=== PATIENT | female | born 2000 | race American Indian/Alaskan Native ===

== ENCOUNTER 2022-06-01 21:35 | Emergency (ER) | payer MEDICAID ==
[~2022-06-01] VITALS: Ht 170.2 cm; Wt 115.6 kg
[~2022-06-01 21:35] MED LIST: LACT10SO88 PO; LORA10TA61 PO; MUPI1OIN8 BOTHNARES; ONDA4TAB12 PO; PANT40TA54 PO; [UNRECOGNIZED DRUG - CODE] PO
[2022-06-01] MEDS ORDERED: TETanus/Pertussis (Acell)/Diphther VAC/PF (Tdap-Adult) 0.5ml syringe IMVAC ONE (22:20)
[2022-06-01] MEDS ORDERED: bacitracin 15gm ointment TP ONE (22:20)
[2022-06-01] MEDS ORDERED: LIDOcaine 1% W/epiNEPHrine 1:200,000 10ml vial IJ ONE (22:20)
[2022-06-01] MEDS ORDERED: LIDOCAINE 2%/EPI 1:100,000 inj. Multi-dose 20 ML VIAL IJ ONE (22:35)
[2022-06-01 23:43] VITALS: BP 136/68
== END 2022-06-01 23:56 | disposition home or self-care (01) ==
LOC: ER 21:36
DX: S91.311A Laceration without foreign body, right foot, initial encounter (principal); K21.9 Gastro-esophageal reflux disease without esophagitis; Z79.899 Other long term (current) drug therapy; W45.8XXA Other foreign body or object entering through skin, initial encounter; Y93.89 Activity, other specified; Y92.89 Other specified places as the place of occurrence of the external cause; Y99.8 Other external cause status
CPT/HCPCS: 12002; 73610; 90471; 90715; 99283; J7030; A6449

== ENCOUNTER 2024-09-14 16:10 | Emergency (ER) | payer SELFPAY ==
[~2024-09-14] VITALS: Ht 172.7 cm; Wt 113.6 kg
[~2024-09-14 16:10] MED LIST changes: +LACT-383 PO; -LACT10SO88 PO; +ONDA-243 PO; -ONDA4TAB12 PO
[2024-09-14 16:42] VITALS: BP 132/70; PULSE 99; RESP 16; O2SAT 97
[2024-09-14] MEDS ORDERED: AMOX-117 PO (17:54)
[2024-09-14] MEDS ORDERED: GUAI120015 PO (17:54)
--- NOTE | 2024-09-14 17:54 | Physician Documentation ---
History of Present Illness ~ Chief Complaint: Flu Symptoms Stated Complaint: SINUS PRESSURE Time Seen by MD: 17:29 Primary Medical Doctor: [facility] Medication Reconciliation Allergies: Coded Allergies: No Known Allergies (Unverified , 06/01/22) Scheduled Lactulose (Lactulose), 15 ML PO DAILY Loratadine (Claritin), 1 TAB PO DAILY Mupirocin Calcium (Bactroban Nasal), 1 GM BOTHNARES Q12H Norethindrone AC-Eth Estradiol (Microgestin 21 1-20 Tablet), 1 TAB PO DAILY, (Reported) Pantoprazole Sodium (Pantoprazole Sodium), 1 TAB PO DAILY Scheduled PRN ONDANSETRON ODT 4mg tablet (Ondansetron Odt), 1 TABLET PO Q6H PRN for nausea/vomiting Past Medical History Past Medical History: *GI/HEPATOBILIARY*, GERD, *INFECTIOUS DZ* Past Surgical History: noncontributory Alcohol Use: None Drug Use: none Lives with: Family Lives In: Home Occupation: student, child Physical Exam Vital Signs: Temperature: 98.7, Heart Rate: 99, Respiratory Rate: 16, BP: 132/70, Pulse Oximetry: 97, Weight: 113.640 Oxygen Flow Rate: 0 Progress Results/Orders Results/Orders Vital Signs 09/14/24 16:42 Temp 98.7 Pulse 99 Resp 16 B/P (MAP) 132/70 Pulse Ox 97 O2 Flow Rate 0 Departure Time of Disposition: 17:50 Disposition: 01 HOME / SELF CARE / HOMELESS Impression: Primary Impression: Sinus infection Condition: Stable Discharge Instructions: Sinus Infection, Adult Referrals: NO PRIMARY CARE PROVIDER (PCP) Prescriptions Guaifenesin (Mucinex) 1,200 Mg Tbbp.12hr 1 TAB PO Q12H for cough for 10 Days, #20 TAB 0 Refills Prov: MARY CARMEN RAMIRES [employer] 09/14/24 Amox Tr/Potassium Clavulanate (Augmentin 875-125 Tablet) 1 Each Tablet 1 TAB PO Q12H for 10 Days, #20 TAB Prov: MARY CARMEN RAMIRES [employer] [facility] OPER[employer] 09/14/24 Education Educated: Patient Educated regarding: diagnosis Additional Comment Take antibiotics as prescribed until full course is complete. There are tmot-rjw-inxfale treatments to help with symptoms included sinus congestion take Tylenol or ibuprofen for pain or fever. MARY CARMEN RAMIRES NP September 14, 2024 17:54
[2024-09-14 18:03] VITALS: TEMP 98.7
== END 2024-09-14 18:05 | disposition home or self-care (01) ==
LOC: ER 16:12
DX: J32.9 Chronic sinusitis, unspecified (principal); Z79.899 Other long term (current) drug therapy
CPT/HCPCS: 99283